=== PATIENT | female | born 1965 | race Caucasian/White ===

== ENCOUNTER 2017-05-05 06:46 | Emergency (ER) | payer BC ==
[~2017-05-05] VITALS: Ht 170.2 cm; Wt 99.8 kg
--- NOTE | ~2017-05-05 | CT4 ---
[facility] A Service of [facility] RADIOLOGY TEXT RESULTS PATIENT: SARAH FRIAS LOCATION: [facility] : 65 UNIT #: [id number] AGE: [address]: Brandon Dickens MD SEX: F ORDER DR: [id number] [facility] [address] [place], [place] [address] [id number] MR#: [id number] #: [id number] NAME: SARAH FRIAS : 1965 SEX: F STUDY DATE/TIME: 05/05/2017 8:41 UNIT: [facility] ROOM: STUDY DESCRIPTION: CT Abd and Pelv Wo Cont Attending Physician: Brandon Dickens M.D. Ordering Physician: Brandon Dickens M.D. Primary Care Physician: Primary Care Physician No MEDICAL IMAGING REPORT This report is preliminary unless electronic signature is present EXAM Abdomen and pelvis CT without contrast HISTORY Frequent painful urination over the past 5 days with lower abdomen and pelvic pain near the bladder. Additional history of left rib fractures from falling in a bathtub 1 month ago. TECHNIQUE Axial images were obtained through the abdomen and pelvis without contrast. This CT exam was performed with one or more of the following radiation dose reduction techniques: automatic control, adjustment of mA and/or kV according to patient size, and iterative reconstruction. FINDINGS There is mild atelectasis at both lung bases posteriorly. In the abdomen the liver shows diffuse fatty infiltration. The spleen and pancreas are unremarkable. No evidence of hydronephrosis. No adrenal masses are seen. There is no evidence of retroperitoneal adenopathy or ascites. No ureteral stones or bladder stones are seen. The appendix is normal. No distended bowel loops. In the pelvis there is no evidence of adenopathy, mass or fluid collection. IMPRESSION No evidence of stone disease or obstruction. No acute or inflammatory changes in the abdomen or pelvis. Mild bibasilar atelectasis. Diffuse hepatic steatosis. Dictated by... Sebastien Pascal M.D. [facility] A Service of [facility] RADIOLOGY TEXT RESULTS PATIENT: SARAH FRIAS LOCATION: [facility] : 65 UNIT #: [id number] AGE: [address]: Brandon Dickens MD SEX: F ORDER DR: THIS IS AN ELECTRONICALLY VERIFIED REPORT Sebastien Pascal M.D. at 05/06/2017 10:56 AM [place]/jesica TD: 05/06/2017 06:11 JOB #: [id number] MEDICAL IMAGING REPORT Page 1 of 1 COPY
[2017-05-05 07:42] LABS: URINE SOURCE CLEAN CATCH
[2017-05-05 07:49] LABS: BASOPHIL# 0.1 X10e3 (0-0.3); BASOPHIL% 1.1 % (0-2.5); EOSINOPHIL# 0.3 X10e3 (0-0.7); EOSINOPHIL% 2.6 % (0.0-7.0); HEMATOCRIT 40.7 % (35.0-45.0); HEMOGLOBIN 14.1 gm/dL (12.0-16.0); LYMPHOCYTE# 2.8 X10e3 (1.0-3.5); LYMPHOCYTE% 25.6 % (17.0-45.0); MEAN CELL VOLUME 86.4 FL (83-96); MEAN CORPUSCULAR HEMOGLOBIN 29.9 PG (28-34); MEAN CORPUSCULAR HGB CONC 34.6 g/dL (30-36); MEAN PLATELET VOLUME 9.7 FL (6.5-11.5); MONOCYTE# 0.9 X10e3 (0-1.0); MONOCYTE% 8.1 % (3.0-12.0); NEUTROPHIL# 6.8 X10e3 (1.5-7.1); NEUTROPHIL% 62.6 % (40-75); PLATELET COUNT 202 X10e3 (140-420); RED BLOOD COUNT 4.71 X10e (3.90-5.30); RED CELL DISTRIBUTION WIDTH 12.8 % (11.0-15.5); WHITE BLOOD COUNT 10.8 X10e3 (4.0-10.5)
[2017-05-05 07:55] LABS: DIFF IND NO
[2017-05-05 08:07] LABS: URINE APPEARANCE TURBID; URINE BLOOD NEG (NEG); URINE GLUCOSE NEG (NEG); URINE LEUKOCYTE ESTERASE 2+ (NEG); URINE NITRATE POS (NEG); URINE PROTEIN 1+ (NEG)
[2017-05-05 08:10] LABS: CULTURE INDICATED? YES; UWBCS1 AUWI 25-50 (0-5)
[2017-05-05 08:13] LABS: BILIRUBIN,TOTAL 0.6 mg/dL (0.2-2.0); CALCIUM SERUM 8.5 mg/dL (8.4-10.2); CREATININE SERUM 0.7 mg/dL (0.6-1.4); GLOM FILT RATE Estimated 99.6 mL/min (>60); POTASSIUM 3.3 mmol/L (3.5-5.1)
[2017-05-05 08:26] LABS: URINE BILIRUBIN POS (NEG); URINE COLOR ORANGE
[2017-05-05 08:29] LABS: URINE BACTERIA AUWI 4+ (NEGATIVE)
[2017-05-05 08:30] LABS: URINE SQUAMOUS EPITHELIAL CELL MODERATE /[HPF]
== END 2017-05-05 09:43 | disposition home or self-care (01) ==
LOC: CED 06:46
PROVIDERS: Emergency Medicine
DX: N39.0 Urinary tract infection, site not specified (principal); Z90.49 Acquired absence of other specified parts of digestive tract
CPT/HCPCS: 36415; 74176; 80053; 81003; 83690; 84703; 85025; 87086; 96361; 96365; 96375; 99284; J0696; J1885